=== PATIENT | female | born 1985 | race Caucasian/White ===

== ENCOUNTER → 2021-11-11 10:17 | Outpatient (BNVA) | payer MEDICARE, MEDICAID, SELFPAY | PROVIDERS: Family Provider Nurse Practitioner Family; Visit Provider Surgery | DX: K80.20 Calculus of gallbladder without cholecystitis without obstruction (principal) | CPT/HCPCS: 99214 ==

== ENCOUNTER 2021-11-13 08:49 | Day surgery (SDC) | payer MEDICARE, MEDICAID, SELFPAY ==
[2021-11-12 11:34] VITALS: BMI 24.3
[2021-11-13] VITALS (7 sets, daily range): BP systolic 131–147; BP diastolic 73–91; PULSE 66–99; RESP 16–18; TEMP 36.2–37.7; O2SAT 95–100
--- NOTE | 2021-11-13 09:29 | W.PM.OPSFHP ---
Same Day Surgery H&P Indication for Procedure/HPI DATE OF PROCEDURE: November 13, 2021 CHIEF COMPLAINT/INDICATIONFOR SURGICAL PROCEDURE: lap gunner PREOP DIAGNOSIS: cholelithiasis PLANNED PROCEDURE: Operation Date: 11/13/21 10:45 Proposed Procedures p Laparoscopic Cholecystectomy 90239,K80.20(Not Applicable) - Sammy Menchaca MD Medications/Allergies* Home Medications Medication Instructions Recorded Confirmed Type No Known Home Medications 06/30/21 11/13/21 History Allergies/Adverse Reactions Allergy/AdvReac Type Severity Reaction Status Date / Time No Known Allergies Allergy Verified 11/13/21 09:19 Pertinent History/Comorbid Conditions* Family History (Updated 06/30/21 @ 12:06 by Maria De Jesus Timmons) Diabetes Bleeding disorder Stroke Denies family history of CAD (coronary artery disease) Dementia Chronic kidney disease (CKD) Cancer Social History Smoking and tobacco status: never smoked Alcohol intake: never Lives independently: Yes Household members: other Pertinent Exam Findings alert, oriented x 3 and regular rate & rhythm Recommendations Surgery/Procedure today Coding Level of Care Code Acute Micropaleontologist for Jayme Musa
[2021-11-13 09:36] LABS: OR HCG Qualitative Urine Negative (Negative)
--- NOTE | 2021-11-13 09:42 | ANES.PREANE2 ---
Pre-Anesthetic Assessment Height/Weight: Height 1.7 m Weight 70.307 kg Temp Pulse Resp BP Pulse Ox 99.8 F H 99 18 140/83 98 11/13/21 09:23 11/13/21 09:23 11/13/21 09:23 11/13/21 09:23 11/13/21 09:23 Preop Diagnosis: cholelithiasis Operation Date: 11/13/21 10:45 Proposed Procedures p Laparoscopic Cholecystectomy 97957,K80.20(Not Applicable) - Sammy Menchaca MD Familial anesthetic complications: none Was Beta Desmond taken within 24 hours: N/A Was Clonidine taken within 24 hours: N/A Last intake: Intake Last Liquid Date 11/13/21 Last Liquid Time 06:00 Last Solid Date 11/12/21 Social No alcohol and No tobacco Exam alert, oriented x 3, clear to auscultation bilaterally and regular rate & rhythm Airway Submandibular: within normal limits Cervical ROM: within normal limits Mallampati: Class II Dentition: false Neuropsych CP Anesthetic Plan ASA status: 2 Anesthesia: General Medications/Allergies Home Medications Medication Instructions Recorded Confirmed Last Taken Type No Known Home Medications 06/30/21 11/13/21 Unknown History hydrocodone 5 mg-acetaminophen 325 1 tab PO Q6H PRN #20 tab 11/13/21 Unknown Rx mg tablet Allergies Allergy/AdvReac Type Severity Reaction Status Date / Time No Known Allergies Allergy Verified 11/13/21 09:19 PFS Anesthesia Surgical History (Updated 11/13/21 @ 09:31 by Sammy Menchaca MD) Status post laparoscopic cholecystectomy (11/13/21) Family History Other Bleeding disorder Diabetes Stroke Denies family history of CAD (coronary artery disease) Dementia Chronic kidney disease (CKD) Cancer Social History Smoking and tobacco status: never smoked Alcohol intake: never Lives independently: Yes Household members: other Data Anesthesia Cardiac Studies: No Data to Display
[2021-11-13] MEDS: ceFAZolin 2,000 MG in sodium chloride 0.9% (plus) 50 ML 100 MG IV (10:06)
[2021-11-13] MEDS: sodium chloride 0.9% 1,000 ML 30 ML IV (10:15)
--- NOTE | 2021-11-13 11:45 | PM.OP ---
Operative Report Date of procedure: November 13, 2021 Pre-op diagnosis: Cholelithiasis Post-op findings: Very small gallbladder Procedure done: Laparoscopic cholecystectomy Specimens removed/disposition: Gallbladder Surgeon: Sammy Menchaca Anesthesia: General Condition: stable Disposition: PACU Brief History: The patient was taken to the operating room and was intubated under general anesthesia. After the antibiotic had been administered, the abdomen was prepped and draped in a sterile manner. Using a #15 blade, a 1 centimeter infraumbilical curvilinear incision was made and using an open Brenda technique the peritoneal cavity was entered. A 10 millimeter port was placed and 15 millimeters of pneumoperitoneum was created. A 10 millimeter, 30 degrees scope was then introduced. Three 5 millimeter ports were placed in the epigastric, midclavicular and the anterior axillary line two fingerbreadths below the costal margin on the right side under the direct visualization. The gallbladder was extremely small. Ratcheted forceps were introduced into the lateral most port and was used to retract the fundus of the gallbladder cephalad and using forceps the infundibulum of the gallbladder was retracted laterally. Using L-hook cautery the peritoneum overlying the Calot's triangle was opened medially and laterally until the cystic duct and the cystic artery were skeletonized. Dissection was carried along the body of the gallbladder and after ensuring critical view of safety, 4 clips applied on the cystic duct and 3 clips applied on the cystic artery and cut leaving, 3 clips on the remaining portion of the duct and 2 clips on the remaining portion of the artery. The rest of the gallbladder was dissected off the liver using L-hook cautery. There was no bleeding or bile leaking noted from the gallbladder fossa and the clips appeared to be in place. An EndoCatch bag was introduced to remove the gallbladder. All the ports were removed under direct visualization and there was no bleeding noted from the port sites. The fascia of the umbilicus was closed using [id number] 0 Vicryl sutures and the subcutaneous tissue was approximated using 3-0 Vicryl sutures. The skin at all four ports were closed using 4-0 Monocryl and Dermabond. A total of 10 millimeters of 0.5% Marcaine was infiltrated around the port sites. The patient was stable throughout the procedure.
[2021-11-13] MEDS: HYDROcodone-acetaminophen 5-325 mg Tablet 1 TAB PO (11:55)
--- NOTE | 2021-11-13 16:21 | ANE.PACU2 ---
Inpatient post-anesthesia follow up: Airway intact: Yes Vital signs: Temperature 97.3 F Pulse Rate 66 Respiratory Rate 18 Blood Pressure 132/85 Pulse Oximetry 96 Oxygen Delivery Me thod Room Air Oxygen Flow Rate 6 Fraction of Inspir ed Oxygen Hydration adequate: Yes Nausea and vomiting: No Pain level: 3 Mental status: Baseline
== END 2021-11-13 12:13 | disposition home or self-care (01) ==
PROVIDERS: Anesthesiology; Visit Provider Surgery
PROC: 0FT44ZZ Resection of Gallbladder, Percutaneous Endoscopic Approach (ICD-10-PCS; CPT 47562; principal; 2021-11-13 10:45)
DX: K81.1 Chronic cholecystitis (principal)
CPT/HCPCS: 47562; 81025; 84703; 88304; J1100; J1885; J2405; J2704; J2710; J3010; J3490; J7030

== ENCOUNTER → 2021-12-02 10:43 | Outpatient (BNVA) | payer MEDICARE, MEDICAID, SELFPAY | PROVIDERS: Visit Provider Surgery | DX: Z98.890 Other specified postprocedural states (principal); Z90.49 Acquired absence of other specified parts of digestive tract | CPT/HCPCS: 99024 ==